=== PATIENT | female | born 1965 | race Two or more races ===

== ENCOUNTER 2021-10-12 08:00 | Outpatient (CLI) | payer OTHER | END 2021-10-12 08:30 | disposition home or self-care (01) | LOC: PPH VACUNA 08:00 | PROVIDERS: ATTEND Emergency Medicine Pediatric Emergency Medicine | DX: Z23 Encounter for immunization (principal); Z71.85 Encounter for immunization safety counseling ==

== ENCOUNTER 2024-10-04 07:41 | Emergency (ER) | payer OTHER ==
[~2024-10-04] VITALS: Ht 165.1 cm; Wt 90.7 kg
== END 2024-10-04 09:11 | disposition home or self-care (01) ==
LOC: ER 07:42
DX: S61.012A Laceration without foreign body of left thumb without damage to nail, initial encounter (principal); W25.XXXA Contact with sharp glass, initial encounter; Y93.89 Activity, other specified; Y92.018 Other place in single-family (private) house as the place of occurrence of the external cause; Y99.9 Unspecified external cause status